=== PATIENT | female | born 1985 | race Caucasian/White ===

== ENCOUNTER 2021-07-24 16:12 | Outpatient (CLI) | payer OTHER, SELFPAY ==
[2021-07-30 13:24] LABS: HPV APTIMA, High Risk Negative (Negative)
== END 2021-07-24 23:59 | disposition home or self-care (01) ==
LOC: LABSPEC 16:23
PROVIDERS: Referring Provider Nurse Practitioner Women's Health; Visit Provider Nurse Practitioner Women's Health
DX: Z12.4 Encounter for screening for malignant neoplasm of cervix (principal)
CPT/HCPCS: 87624; 88175; G0145

== ENCOUNTER 2022-09-10 15:40 | Outpatient (CLI) | payer OTHER, SELFPAY ==
[2022-09-10 17:50] LABS: Absolute Lymphocyte Count 1.54 X10^3/uL (0.83-4.51); Absolute Neutrophil Count 3.2 X10^3/uL (2.0-7.7); Basophil# 0.04 X10^3/uL; Basophil% 0.7 % (0-1); Eosinophil# 0.29 X10^3/uL; Eosinophils% 5.2 % (0-5); Hematocrit 40.1 % (37-47); Hemoglobin 13.2 g/dL (12.0-15.0); Lymphocyte # 1.54 X10^3/ul (0.83-4.51); Lymphocyte % 27.5 % (19-41); Mean Corp Hgb Conc 32.9 g/dL (32-36); Mean Corpuscular Hgb 30.1 pg (27.0-32.0); Mean Corpuscular Volume 91.6 fL (81-99); Mean Platelet Vol. 9.4 fl (6.2-12.0); Monocyte# 0.48 X10^3/uL; Monocyte% 8.6 % (0-10); NRBC Flagged by Analyzer 0 % (0-5); Neutrophil # 3.22 X10^3/uL (2.7-7.7); Neutrophil % 57.6 % (47-70); Platelet Count 227 K/mm3 (150-450); RBC Distribution Width CV 11.9 % (11.6-14.6); RBC Distribution Width SD 40.4 fl (35.1-43.9); Red Blood Count 4.38 M/mm3 (4.2-5.4); White Blood Count 5.6 K/mm3 (4.4-11.0)
[2022-09-10 19:07] LABS: T4 Free Direct 0.97 ng/dL (0.76-1.46); Thyroid Stim Hormone (TSH) 1.69 uIU/mL (0.358-3.74)
[2022-09-13 16:09] LABS: Thyroid Stim Immunoglob <0.10 IU/L (0.00-0.55)
[2022-09-13 16:55] LABS: Anti-Thyroglobulin AB < 1.0 IU/mL (0.0-0.9); Thyroglobulin, Serum Qt. 22.6 ng/mL (1.5-38.5); Thyroid Peroxidase AB 10 IU/mL (0-34)
== END 2022-09-10 23:59 | disposition home or self-care (01) ==
LOC: MFPLAB 15:41
PROVIDERS: PCP Family Medicine; Referring Provider Family Medicine; Visit Provider Family Medicine
DX: Z00.00 Encounter for general adult medical examination without abnormal findings (principal)
CPT/HCPCS: 36415; 84432; 84439; 84443; 84445; 85025; 86376; 86800

== ENCOUNTER → 2022-09-16 | Outpatient (CLI) | payer OTHER, SELFPAY ==
--- NOTE | 2022-09-16 16:48 | US_ITS ---
STUDY: THYROID ULTRASOUND REASON FOR EXAM: Female, 37 years old. THYROMEGALY TECHNIQUE: Ultrasound evaluation of the thyroid was performed with real-time and static pagan-scale imaging. COMPARISON: None. FINDINGS: RIGHT LOBE: The right lobe of the thyroid gland measures 5.3 x 1.6 x 1.1 cm. There is a homogeneous echotexture. There is a 4 x 2 x 2 mm cystic nodule in the lower lobes demonstrating regular margins and perinodular vascularity. LEFT LOBE: The left lobe of the thyroid gland measures 5 x 1.3 x 0.9 cm. There is a homogeneous echotexture. There are multiple tiny nodules the largest cystic measuring 2 x 3 x 1 mm in the lower pole demonstrating regular margins and perinodular vascularity ISTHMUS: The isthmus measures 2.1 cm . The regional lymph nodes are normal. US/Thyroid IMPRESSION: Multiple tiny thyroid nodules most likely adenomatous.. Recommend clinical correlation and six-month follow-up Electronically Signed: Franko Faye MD at 22:15 EDT ,
== END | disposition home or self-care (01) ==
PROVIDERS: PCP Family Medicine; Referring Provider Family Medicine; Visit Provider Family Medicine
DX: E01.0 Iodine-deficiency related diffuse (endemic) goiter (principal)
CPT/HCPCS: 76536

== ENCOUNTER → 2024-09-29 | Outpatient (CLI) | payer OTHER, SELFPAY ==
[2024-09-29 12:57] LABS: Hematocrit 38.2 % (37-47); Hemoglobin 12.5 g/dL (12.0-15.0); Mean Corp Hgb Conc 32.7 g/dL (32-36); Mean Corpuscular Hgb 29.9 pg (27.0-32.0); Mean Corpuscular Volume 91.4 fL (81-99); Mean Platelet Vol. 9.6 fl (6.2-12.0); Platelet Count 214 K/mm3 (150-450); RBC Distribution Width CV 12.5 % (11.6-14.6); RBC Distribution Width SD 41.9 fl (35.1-43.9); Red Blood Count 4.18 M/mm3 (4.2-5.4); White Blood Count 4.8 K/mm3 (4.4-11.0)
[2024-09-29 13:50] LABS: Anion Gap 10 (5-15); BUN 11 mg/dL (4-19); BUN/Creat Ratio 13.3 RATIO (10-20); Calcium,Total 8.9 mg/dL (7.6-11.0); Chloride 106 mmol/L (98-108); Cholesterol 170 mg/dL (<=200); Creatinine, Serum 0.79 mg/dL (0.70-1.20); EST Glomerular Filtration Rate 97 (>60); Glucose 88 mg/dL (70-99); High Density Lipoprotein 67 mg/dL; Low Density Lipoprotein Calc. 93 mg/dL; Potassium 4.4 mmol/L (3.3-5.1); Sodium Level 139 mmol/L (133-145); Triglycerides 52 mg/dL; Very Low Density Lipoprotein 10 mg/dL (5-40); cholesterol:hdl ratio screen 2.54
== END | disposition home or self-care (01) ==
LOC: MFPLAB 09:59
PROVIDERS: PCP Family Medicine
DX: Z00.00 Encounter for general adult medical examination without abnormal findings (principal); Z13.220 Encounter for screening for lipoid disorders; E01.0 Iodine-deficiency related diffuse (endemic) goiter
CPT/HCPCS: 36415; 80048; 80061; 84439; 84443; 85027

== ENCOUNTER → 2024-10-14 | Outpatient (CLI) | payer OTHER, SELFPAY ==
--- NOTE | 2024-10-14 14:59 | US_ITS ---
PROCEDURE: THYROID 10/14/2024 REASON FOR EXAM: NODULES TECHNIQUE: High-frequency thyroid ultrasound, including grayscale and color-flow images. REFERENCE LINKS: TI-RADS Chart: [email or web address] TI-RADS Calculator Tool with Reference Images: [email or web address] COMPARISON: September 16, 2022. FINDINGS: Right thyroid lobe size: 5.4 cm x 1.7 cm x 1.3 cm Left thyroid lobe size: 5 cm x 1.3 cm 1.1 cm Isthmus: 0.14 cm Background parenchymal echotexture is homogeneous. Nodules: . Lobe: Right, Location: Inferior pole, Size: 3 mm x 3 mm x 2 mm Stability: Stable Composition: Mixed cystic and solid (+1) Echogenicity: Anechoic (+0) Margin: Smooth (+0) Shape: Wider than tall (+0) Echogenic Foci: None (+0) TI-RADS: <2 = TR 1 * 2 = TR 2 * 3 = TR 3 * 4-6 = TR 4 * >6 = TR 5 . Lobe: Left, Location: Inferior pole, Size: 3 mm x 2 mm x 1 mm , Stability: Stable Composition: Cystic or mostly cystic (+0) Echogenicity: Anechoic (+0) Margin: Smooth (+0) Shape: Wider than tall (+0) Echogenic Foci: None (+0) TI-RADS: <2 = TR 1 * 2 = TR 2 * 3 = TR 3 * 4-6 = TR 4 * >6 = TR 5 Incidental note is made of a 2.2 cm x 1 cm by 0.4 cm benign-appearing right cervical lymph node. US/Thyroid IMPRESSION: Stable examination. RECOMMENDATION: Based on most suspicious nodule. Nodule size = largest diameter Only evaluate nodule if =>5 mm. Growth > 20% in 2 dimensions = worsening. Follow up to 4 nodules. Recommend biopsy for no more than 2 nodules. Reading Location: [place] [id number]
== END | disposition home or self-care (01) ==
LOC: OPUS 14:58
PROVIDERS: PCP Family Medicine
DX: Z00.00 Encounter for general adult medical examination without abnormal findings (principal); E04.2 Nontoxic multinodular goiter
CPT/HCPCS: 76536

== ENCOUNTER → 2025-04-13 | Outpatient (CLI) | payer OTHER, SELFPAY ==
--- OUTSIDE RECORDS SUMMARY | 2025-04-13 09:17 | XMS RPT_ITS | CCD ---
Author Organization [facility] Care Team Providers Care Chief Projectionist Name Role Phone Unavailable Primary Care Provider Unavailabl e Care Physician, No Primary Referring Provider Un available Dr. Shanique Torrez Attending Provider Dr. Jules Espinoza Primary Care Provider Jules Espinoza Referring Unavailable Mariza Braswell Attending Unavailable Jules Espinoza Primary Care Unavailable [facility] HYDROELECTRIC SYSTEMS TECHNICIAN, Ben Attending [facility]available [facility] HYDROELECTRIC SYSTEMS TECHNICIAN, Ben Referring Unavailable Jules Espinoza Primary Care Unavailable [facility] HYDROELECTRIC SYSTEMS TECHNICIAN, Ben Attending Unavailable [facility] HYDROELECTRIC SYSTEMS TECHNICIAN, Ben Referring Unavailable Jules Espinoza Primary Care Unavailable Jules Espinoza Referring Unavailable Damari Brito Attending Unavailable Jules Espinoza Primary Care Unavailable Unavailable Primary Care Provider UnavailARPIT Lozoya Attending Unavailable OCTAVIAORROWBEN Referring Unavailable LOKI RENAE Attending Unavaila ble Allergies Allergy Classification Reported Allergen(s) Allergy Type Date of Onset Reaction(s) Facility (2 sources) environmental [Other] Propensity to adverse reactions 7 [facility] (1 source) OTHER; Translations: [OTHER] Propensity to adverse reactions (disorder) 7 [facility] Repository Medications Current Medications Medication Drug Class(es) Dates Sig (Normalized) Sig (Original) budesonide 0.032 mg/actuat metered dose nasal spray (2 sources) Corticosteroid Start: 07-24-2021 take 1 spray(s) nasal route once daily Budesonide Active 1 SPRAY INTRANASAL DAILY July 24, 2021 1:00am administer into each nostril cetirizine hydrochloride 10 mg oral capsule (2 sources) Histamine-1 Receptor Antagonist Start: 07-24-2021 take 1 capsule by mouth once daily Cetirizine (Zyrtec) 10 mg capsule Active 10 MG PO DAILY July 24, 2021 1:00am 12 hr cetirizine hydrochloride 5 mg / pseudoephedrine hydrochloride 120 mg extended release oral tablet (2 sources) alpha-Adrenergic Agonist, Histamine-1 Receptor Antagonist Start: 06-04-2006 ZYRTEC-D 5 MG-120 MG 12 HR TAB Take one(1) tablet daily as needed. 45 0 06/04/2006 Active levonorgestrel 0.580414 mg/hr intrauterine system (2 sources) Progestin, Progestin-containin g Intrauterine Device Start: 07-24-2021 Levonorgestrel (Liletta) 20.1 mcg/24 hrs (6 yrs) 52 mg intrauterine device Active 1 DEVICE INTRA-UTER ONCE July 24, 2021 1:00am inserted 02/2020 mometasone furoate 0.05 mg/actuat metered dose nasal spray (2 sources) Corticosteroid Start: 01-04-2009 mometasone furoate(NASONEX 50 MCG/ACTUATION SPRAY) as needed 1 2 01/04/2009 Active Completed/Discontinued Medications Medication Drug Class(es) Dates Sig (Normalized) Sig (Original) benzoyl peroxide 0.05 mg/mg / clindamycin phosphate 0.012 mg/mg topical gel (2 sources) Lincosamide Antibacterial Start: 06-03-2006 End: 02-03-2025 apply 30 g topically in the morning DUAC 1 %-5 % TOPICAL GEL APPLY TO AFFECTED AREA IN THE MORNING 30 GM 1 06/03/2006 02/03/2025 Discontinued (Course of therapy completed) drospirenone / Ethinyl Estradiol (2 sources) Progestin, Estrogen Start: 07-30-2007 End: 02-03-2025 ethinyl estradiol/drospire none(ANDERSON 28 3 MG-0.03 MG TAB) Take one(1) tablet daily. 1 pkt 0 07/30/2007 02/03/2025 Discontinued (Course of therapy completed) Start: 07-30-2007 ethinyl estrad iol/drospirenone(ANDERSON 28 3 MG-0.03 MG TAB) Take one(1) tablet daily. 1 pkt 0 07/30/2007 Active montelukast 10 mg oral tablet (2 sources) Leukotriene Receptor Antagonist Start: 08-01-2006 End: 02-03-2025 SINGULAIR 10 MG TAB Take one(1) tablet daily at bedtime. 15 1 08/01/2006 02/03/2025 Discontinued (Course of therapy completed) tretinoin 0.001 mg/mg topical gel (2 sources) Retinoid Start: 06-03-2006 End: 02-03-2025 RETIN-A MICRO 0.1 % TOPICAL GEL AT NIGHT FOR ACNE 45GRAMS 0 06/03/2006 02/03/2025 Discontinued (Course of therapy completed) Problems Active Problems Problem Classification Problem Date Documented Da te Episodic/Chronic Contraceptive and procreative management (2 sources) Intrauterine contraceptive device in situ; Translations: [Presence of (intrauterine) contraceptive device] 07-24-2021 Episodic Other gastrointestinal disorders (1 source) Diarrhea, unspecified; Translations: [Diarrhea, unspecified] Onset: 10-05-2024 Episodic Thyroid disorders (2 sources) Multinodular goiter; Translations: [Nontoxic multinodular goiter] 01-03-2025 Chronic Past or Other Problems Problem Classification Problem Date Documented Da te Episodic/Chronic Other fractures (2 sources) Closed fracture of rib; Translations: [Fracture of one rib, unspecified side, initial encounter for closed fracture] Onset: 04-22-2007 09-28-2024 Episodic Other skin disorders (2 sources) Acne; Translations: [Other acne] Onset: 05-14-2005 09-28-2024 Episodic Results Test Name Value Interpretation Reference Range Facility [facility] 02-03-2025 CNOV Office Visit (ENWSTR ) BONY QUIROZ ([id number]) 1985 F Date Time Provider Department 02/03/25 8:00 AM LOKI RENAE ENWSTR During your visit today, we recorded the following information about you: Pulse Respiration Blood pressure Weight 80/minute 17/minute 104/76 77.2 kg Loki Renae MD 02/03/2025 6:59 PM Signed [facility] Initial Clinic Visit Note NAME: Bony Quiroz PCP: No primary care provider on file. Chief Complaint: Thyroid cysts HPI: Bony Quiroz is a 39 year old female was referred for evaluation of thyroid nodules/cysts. She works at a vet clinic History in brief, - Initial thyroid ultrasound performed in [place] several years ago. - Moved to [place] and established care with a new PCP, who ordered a repeat ultrasound. - Bony missed a follow-up appointment, resulting in a 2-year gap before the next ultrasound. - Recent ultrasound showed small nodules and an enlarged lymph node. - Consulted with Dr. Agustin, a general surgeon, who reviewed the images and noted the nodules were small and the lymph node appeared healthy. But was advised to seek Endocrinology opinion - Bony denies family history of thyroid nodules or cancer. - Bony's mother has rheumatoid arthritis; Bony's sister had reactive arthritis. - Bony denies history of smoking. 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 - Bony denies other exposure to radioactive material. She is here for my opinion on biopsy of the nodule PAST MEDICAL HISTORY Diagnosis Date NONE PAST SURGICAL HISTORY Procedure Laterality Date PAST SURGICAL HISTORY OF widom teeth extracted ALLERGIES Allergen Reactions Environmental [Othe* stated that she has nasal issues with this, eg: sneezing, runny nose. SOCIAL HISTORY[1] FAMILY HISTORY Problem Relation Age of Onset Cancer Paternal Grandmother MEDICATIONS: Current Outpatient Medications on File Prior to Visit Medication Sig mometasone furoate(NASONEX 50 MCG/ACTUATION SPRAY) as needed ZYRTEC-D 5 MG-120 MG 12 HR TAB Take one(1) tablet daily as needed. No current facility-administered medications on file prior to visit. REVIEW OF SYSTEMS: 10 point ROS was reviewed and negative unless indicated in the HPI PHYSICAL EXAMINATION: BP: 104/76 Pulse: 80 Resp: 17 SpO2: 99 % General: no acute distress, alert and orientated X 3 Eyes:EOMI, anicteric sclera Neck - supple, no significant adenopathy, Thyroid: normal in size, no asymmetry, no palpable nodules Neuro: alert, oriented, normal speech, no focal findings noted CV: normal rate and regular rhythm, S1 and S2 normal. Chest: Lungs clear to auscultation. No wheezing, rhonchi, rales Abdominal: soft, non-tender. Bowel sounds normal. Musculoskeletal: no joint tenderness, deformity or swelling Extremities: no edema, no discoloration Skin: no rash or erythema LABS AND IMAGING No labs available to us, but patient reports normal thyroid labs recently done at PCP office Thyroid ultrasound (10/14/24): ASSESSMENT AND PLAN: Bony Quiroz is a 39 year old female presenting to endocrinology for evaluation of thyroid nodules. 1. Multiple Thyroid cysts/nodules: - TSH normal as verbally reported, along with free T4, and Free T3 - I reviewed the findings with the patient, explained these are considered thyroid cysts, which are essentially benign, and given the size do not need any follow up - she can have thyroid tests done annually or when symptoms occur as part of physical exam, due to family hx of autoimmune disorders, and if any abnormality, can be reviewed Symptoms of hypo and hyperthyroidism reviewed with her No follow up indicated Loki Renae MD [facility] Endocrinology and Metabolism [place] [facility] I spent a total of 30 minutes on the date of the service which included preparing to see the patient, [id number] patient care, completing clinical documentation, obtaining and/or reviewing separately obtained history, performing a medically appropriate examination, counseling and educating the patient/family/caregiv er, ordering medications, tests, or procedures, independently interpreting results (not separately reported), and communicating results to the patient/family/caregiv er. Medical Decision Making: Medical Decision Making Level: 1 - N/A [1] Social History Tobacco Use Smoking status: Never Smokeless tobacco: Never Vaping Use Vaping status: Never Used Substance Use Topics Alcohol use: Yes Comment: occasional Drug use: No Allergies As of Date: 02/03/2025 Noted Allergy Reaction environmental [Other] 08/01/2006 Comments: stated that she has nasal issues with this, eg: sneezing, runny nose. Date Reviewed: 02/03/2025 (more content not included)... Normal [facility] CNOVon 12-20-2024 CNOV Office Visit (GENSWS ) BONY QUIROZ ([id number]) 1985 F Date Time Provider Department 12/20/24 3:30 PM ARPIT AGUSTIN During your visit today, we recorded the following information about you: Temperature Pulse Blood pressure Weight 98.2 degrees 91/minute 130/82 78 kg Arpit Agustin MD 01/03/2025 3:39 PM Signed HISTORY AND PHYSICAL Bony Quiroz 1985 REFERRING PHYSICIAN: Ben Simmons AP* CHIEF COMPLAINT: Consult (Thyroid nodule) HPI: Bony Quiroz is a 39-year-old female presenting for evaluation of thyroid nodules and lymphadenopathy. Bony reports a history of thyroid nodules first identified several years ago during an ultrasound in [place], prompted by her sister, a nurse, who noticed her thyroid appeared enlarged. Her primary care provider at the time noted the thyroid was pretty okay on palpation but ordered an ultrasound to confirm. The ultrasound revealed some findings, but nothing concerning, and she was advised to inform her primary care provider and get routine blood work. After moving to [place], Bony had blood work and a repeat thyroid ultrasound performed 2-3 years ago by a primary care provider at [facility]. The ultrasound again revealed some findings, and she was advised to recheck it in 6 months to a year. However, she missed her physical the following year and did not have another ultrasound until this year. During her physical, she informed the nurse practitioner about her history, and the nurse practitioner noted in the chart that a repeat ultrasound was recommended. Bony had blood work and a repeat ultrasound performed. Bony did not receive the results of the ultrasound and received a bill from the radiologist. She contacted [facility] and was informed via voicemail that four nodules were found on her thyroid, but her blood work was normal, and she was advised to continue monitoring. She then received a call from [facility] informing her of a referral, which she initially thought was to endocrinology but was actually to general surgery. Bony denies feeling any nodules in her neck but notes that her neck appears larger, which she attributes to weight gain after having three children. She denies feeling lethargic or sick and has not experienced night sweats. She is unaware of any family history of lymphoma. The patient is being seen by me today at the request of Dr. Simmons for my opinion and advice regarding Multinodular goiter (primary encounter diagnosis). PAST MEDICAL HISTORY Diagnosis Date NONE PAST SURGICAL HISTORY Procedure Laterality Date PAST SURGICAL HISTORY OF widom teeth extracted Current Outpatient Medications Medication Sig mometasone furoate(NASONEX 50 MCG/ACTUATION SPRAY) as needed ethinyl estradiol/drospirenone (ANDERSON 28 3 MG-0.03 MG TAB) Take one(1) tablet daily. SINGULAIR 10 MG TAB Take one(1) tablet daily at bedtime. DUAC 1 %-5 % TOPICAL GEL APPLY TO AFFECTED AREA IN THE MORNING RETIN-A MICRO 0.1 % TOPICAL GEL AT NIGHT FOR ACNE ZYRTEC-D 5 MG-120 MG 12 HR TAB Take one(1) tablet daily as needed. No current facility-administered medications for this visit. ALLERGIES: Environmental [Other] PERSONAL HISTORY: Social History Tobacco Use Smoking status: Never Substance Use Topics Alcohol use: Yes Comment: occasional Drug use: No FAMILY HISTORY: FAMILY HISTORY Problem Relation Age of Onset Cancer Paternal Grandmother REVIEW OF SYMPTOMS: The review of systems data was entered by the nurse and reviewed by me There are no exam notes on file for this visit. PHYSICAL EXAMINATION: General: The patient is 39 year old female, well nourished, well hydrated in no acute distress. The patient is oriented to time, place, and person. VITALS: Blood pressure 130/82, pulse 91, temperature 36.8 ?C (98.2 ?F), weight 78 kg (172 lb), last menstrual period 08/05/2006, SpO2 99%. HEENT: Normal cephalic, ataumatic, pupils are equally round, sclera are anicteric, mucous membranes are moist, oropharynx is clear. Neck has no masses, asymmetry or lymphadenopathy. Thyroid is unremarkable. Respiratory: Clear to auscultation and percussion. Normal respiratory excursion and pattern. Cardiac: Examination is regular rate and rhythm. Abdominal exam: Soft, nontender, with no palpable masses. No hepatosplenomegaly. No palpable hernias. Rectal exam: exam deferred Extremities: no clubbing, cyanosis or edema. No adenopathy. Other: LABORATORY VALUES: Labs Tests Imaging - Thyroid Ultrasound (most recent noted, no date specified): - Four nodules measuring up to 3 mm. - Lateral cervical lymph node measuring 2.2 ? 1 ? 0.4 cm with elongated shape, consistent with normal architecture (TR1). - Thyroid Ultrasound (earlier, no date specified): - Multiple nodules identified; recommended follow-up in 6 (more content not included)... Normal [facility] Thyroidon 10-14-2024 Thyroid [facility] Imaging Services [address] [place], [place] [address] Thyroid MR#: [id number] Acct: [id number] Name: BONY QUIROZ Rep #: [id number] : 1985 F 39 From: Omid ramírez MD PCP: Dr. Jules Espinoza MD Status: REG CLI Study: Thyroid Date of Exam: 10/14/24 Exam# [id number] Ordering Dr: Ben Simmons HYDROELECTRIC SYSTEMS TECHNICIAN HYDROELECTRIC SYSTEMS TECHNICIAN -C PROCEDURE: THYROID 10/14/2024 REASON FOR EXAM: NODULES TECHNIQUE: High-frequency thyroid ultrasound, including grayscale and color-flow images. REFERENCE LINKS: TI-RADS Chart: [email or web address] TI-RADS Calculator Tool with Reference Images: [email or web address] radiology-calculators/ body-imaging/tirads-ca lculator/ COMPARISON: September 16, 2022. FINDINGS: Right thyroid lobe size: 5.4 cm x 1.7 cm x 1.3 cm Left thyroid lobe size: 5 cm x 1.3 cm 1.1 cm Isthmus: 0.14 cm Background parenchymal echotexture is homogeneous. Nodules: . Lobe: Right, Location: Inferior pole, Size: 3 mm x 3 mm x 2 mm Stability: Stable Composition: Mixed cystic and solid (+1) Echogenicity: Anechoic (+0) Margin: Smooth (+0) Shape: Wider than tall (+0) Echogenic Foci: None (+0) TI-RADS: <2 = TR 1 * 2 = TR 2 * 3 = TR 3 * 4-6 = TR 4 * >6 = TR 5 . Lobe: Left, Location: Inferior pole, Size: 3 mm x 2 mm x 1 mm , Stability: Stable Composition: Cystic or mostly cystic (+0) Echogenicity: Anechoic (+0) Margin: Smooth (+0) Shape: Wider than tall (+0) Echogenic Foci: None (+0) TI-RADS: <2 = TR 1 * 2 = TR 2 * 3 = TR 3 * 4-6 = TR 4 * >6 = TR 5 Incidental note is made of a 2.2 cm x 1 cm by 0.4 cm benign-appearing right cervical lymph node. US/Thyroid IMPRESSION: Stable examination. RECOMMENDATION: Based on most suspicious nodule. Nodule size = largest diameter Only evaluate nodule if =>5 mm. Growth > 20% in 2 dimensions = worsening. Follow up to 4 nodules. Recommend biopsy for no more than 2 nodules. Reading Location: [facility] CC: Ben DUCKWORTH McMorrdiane; Dr. Jules Espinoza MD Household Appliance Installer: Signed Normal [facility] Gastroenterology Visit Repor ton 10-05-2024 Gastroenterology Visit Report [facility] Gastroenterology [address] [place] [address] OFFICE VISIT Date of Service: 10/05/24 MR#: [id number] Acct: [id number] Name: BONY QUIROZ Rep #: [id number] : 1985 Provider: DONITA lofton Age/Sex: 39/F Location: [facility] Status: Signed Intake Vital Signs 09/24/24 09:35 Height 5 ft 8 in Intake Visit Reasons: Diarrhea Chief Complaint: Allergies No Known Allergies Allergy (Verified 10/05/24 14:32) Medications ???Medication ???Instructions ???Recorded ???Confirmed ???Type cetirizine 10 mg capsule (Zyrtec) 10 mg PO DAILY PRN 07/24/2110/05 History fluticasone propionate 50 1 spray intranasal DAILY 09/17/23 10/01/24 History mcg/actuation nasal spray,suspension (Flonase Allergy Relief) [facility] Medical History Shingles Thyromegaly Diarrhea hypertension Seasonal allergies Surgical History H/O oral surgery Family History Father Dementia Prostate cancer Mother Rheumatoid arthritis Sister Celiac disease Other Heart disease Social History household members: spouse and children number of children: 3 current occupational status: employed current occupation: [employer] Smoking Status: Never smoker alcohol intake: current alcohol intake frequency: a few times a month substance use type: does not use what type of physical activity do you participate in: none seatbelt use: always do you feel safe at home: Yes additional social history: - Miguel HPI HPI Chief Complaint: Details: BONY QUIROZ, is a 39 F who presents to the office today for establishment with [facility] for what seems to be cyclical diarrhea. She denies having any GI symptoms at this time. She states that on the last day of her menstrual period, she will get an abdominal discomfort and bloat so bad that she will need a heating pad and Aleve and just be done for the day. She reports having several episodes of watery diarrhea with urgency but is unable to pinpoint if they were from something the kids brought home or something she ate. Upon further discussion, each episode of waking with watery diarrhea came the night before she had to travel a long distance, stress related? She reports that her mother has food sensitivities and rheumatoid arthritis and her sisters have celiac disease and history of multiple pre-cancerous polypectomies. She has discovered that dark pop causes bloating and diarrhea and has removed that from her diet. ROS Const Constitutional: No fatigue, fever(s) or weight change Eyes Eyes: No blurry vision or change in vision ENT ENT: No abnormal hearing or difficulty swallowing Resp Respiratory: No cough Cardio Cardiology: No chest pain at rest, chest pain with exertion or leg pain with exertion Gastro GI: Positive for bloating and excessive flatus; No abdominal pain, belching, change in bowel habits, change in stool character, coffee ground emesis, constipation, cramping, diarrhea, heartburn, difficulty swallowing, feeling full early, incontinent of stools, Vomiting blood/hematemesis, Blood in stool, loose stools, Black,tarry stools, nausea/dyspepsia, pain with swallowing, vomiting or other Genitourinary-Female: No difficulty urinating Musc Musculoskeletal: Positive for back pain; No joint pain or leg pain with exertion Skin Skin: No yellowing of the eye or itchy eyes Neuro Neurology: No abnormal hearing Psych Psychiatric: No anxiety and No depression Endo Endocrine: No cold intolerance, fatigue, heat intolerance or weight change Aller/Imm Allergy/Immunologic: No food intolerance or itchy eyes Que/Lymp Hematologic/Lymphatic: No easy bleeding or easy bruising Exam Const General: cooperative, healthy appearing, comfortable, no acute distress and well groomed Nutritional Appearance: average body habitus Orientation: alert and oriented x3 HENMT Head: normal to inspection Ears: hearing grossly normal bilaterally Nose: external nose normal Face and sinus: normal facial exam and face symmetric Mouth: oral mucosae normal Teeth and gingiva: dentition normal Eyes General: appearance normal, both eyes and all related structures Sclera: sclerae normal Neck Neck: normal visual inspection and full ROM Chest Chest palpation inspection: normal inspection of the chest Resp Effort Inspection: normal respiratory effort, able to speak in complete sentences and symmetric chest movement GI Inspection: normal to inspection Skin General: no rashes or lesions noted Neuro General: patient alert, patient oriented x3 and moves all extremitie (more content not included)... Normal [facility] Basic Metabolic Profile (BMP )on 09-29-2024 BUN/CRE 13.3 RATIO Normal 10-20 [facility] Comment on above: Order Comment: Order Date: 09/27/24 Order Info: [id number] - BMP Order Info: [id number] - LIPID Comments: cholesterol screening Order Info: [id number] - TSH Order Info: 3024-7 - T4F cholesterol screening Performed By: #### L 500.2500 #### [facility] [place], [address] Calcium [Mass/Vol] 8.9 mg/dL Normal 7.6-11.0 [facility] Comment on above: Order Comment: Order Date: 09/27/24 Order Info: 06 - BMP Order Info: [id number] - LIPID Comments: cholesterol screening Order Info: [id number] - TSH Order Info: 3023-12 T4F cholesterol screening Performed By: #### L 500.2500 #### [facility] [address] [place], [place], [id number] Chloride [Moles/Vol] 106 mmol/L Normal 98-108 [facility] Comment on above: Order Comment: Order Date: 09/27/24 Order Info: [id number] - BMP Order Info: [id number] - LIPID Comments: cholesterol screening Order Info: [id number] - TSH Order Info: 3023-12 T4F cholesterol screening Performed By: #### L 500.2500 #### [facility] [address] [place], [place], [id number] CO2 [Moles/Vol] 22.0 mmol/L Normal 21.0-32.0 [facility] Comment on above: Order Comment: Order Date: 09/27/24 Order Info: [id number] - BMP Order Info: [id number] - LIPID Comments: cholesterol screening Order Info: [id number] - TSH Order Info: 3023-12 T4F cholesterol screening Performed By: #### L 500.2500 #### [facility] [address] [place], [place], [id number] Creatinine [Mass/Vol] 0.79 mg/dL Normal 0.70-1.20 [facility] Comment on above: Order Comment: Order Date: 09/27/24 Order Info: [id number] - BMP Order Info: [id number] - LIPID Comments: cholesterol screening Order Info: [id number] - TSH Order Info: 3023-12 T4F cholesterol screening Performed By: #### L 500.2500 #### [facility] [address] [place], [address] GAP 10 Normal 5-15 [facility] Comment on above: Order Comment: Order Date: 09/27/24 Order Info: [id number] - BMP Order Info: [id number] - LIPID Comments: cholesterol screening Order Info: [id number] - TSH Order Info: 3023-12 T4F cholesterol screening Performed By: #### L 500.2500 #### [facility] [address] [place], [address] GFR/1.73 sq M.predicted among non-blacks MDRD (S/P/Bld) [Vol rate/Area] 97 mL/min/{1.73_m2} Normal >60 [facility] Comment on above: Order Comment: Order Date: 09/27/24 Order Info: [id number] - BMP Order Info: [id number] - LIPID Comments: cholesterol screening Order Info: 3015-08 - TSH Order Info: 3023-12 T4F cholesterol screening Result Comment: mL/m in/1.73m2 CKD-EPI Creatinine Equation (2020) Performed By: #### L 500.2500 #### [facility] [address] [place], [address] Glucose [Mass/Vol] 88 mg/dL Normal 70-99 [facility] Comment on above: Order Comment: Order Date: 09/27/24 Order Info: 666-06 - BMP Order Info: [id number] - LIPID Comments: cholesterol screening Order Info: 3015-08 - TSH Order Info: 3023-12 T4F cholesterol screening Performed By: #### L 500.2500 #### [facility] [address] [place], [address] Potassium [Moles/Vol] 4.4 mmol/L Normal 3.3-5.1 [facility] Comment on above: Order Comment: Order Date: 09/27/24 Order Info: 666-06 - BMP Order Info: [id number] - LIPID Comments: cholesterol screening Order Info: 3015-08 - TSH Order Info: 3023-12 T4F cholesterol screening Performed By: #### L 500.2500 #### [facility] [address] [place], [address] Sodium [Moles/Vol] 139 mmol/L Normal 133-145 [facility] Comment on above: Order Comment: Order Date: 09/27/24 Order Info: 0667-1 - BMP Order Info: [id number] - LIPID Comments: cholesterol screening Order Info: 3 - TSH Order Info: 3023-12 T4F cholesterol screening Performed By: #### L 500.2500 #### [facility] [address] [place], [address] Urea nitrogen [Mass/Vol] 11 mg/dL Normal 4-19 [facility] Comment on above: Order Comment: Order Date: 09/27/24 Order Info: 0667 - BMP Order Info: [id number] - LIPID Comments: cholesterol screening Order Info: 3015-08 - TSH Order Info: 3023-12 T4F cholesterol screening Performed By: #### L 500.2500 #### [facility] [address] [place], [address] CBC-Complete Blood Cnt No Di ffon 09-29-2024 Erythrocyte distribution width (RBC) [Ratio] 12.5 % Normal 11.6-14.6 [facility] Comment on above: Order Comment: Order Date: 09/27/24 Order Info: [id number] - CBC Performed By: #### L 100.0500 #### [facility] [address] [place], [address] Hematocrit (Bld) [Volume fraction] 38.2 % Normal 37-47 [facility] Comment on above: Order Comment: Order Date: 09/27/24 Order Info: [id number] - CBC Performed By: #### L 100.0500 #### [facility] [address] [place], [address] Hemoglobin (Bld) [Mass/Vol] 12.5 g/dL Normal 12.0-15.0 [facility] Comment on above: Order Comment: Order Date: 09/27/24 Order Info: [id number] - CBC Performed By: #### L 100.0500 #### [facility] [address] [place], [address] MCH (RBC) [Entitic mass] 29.9 pg Normal 27.0-32.0 [facility] Comment on above: Order Comment: Order Date: 09/27/24 Order Info: [id number] - CBC Performed By: #### L 100.0500 #### [facility] [address] [place], [address] MCHC (RBC) [Mass/Vol] 32.7 g/dL Normal 32-36 [facility] Comment on above: Order Comment: Order Date: 09/27/24 Order Info: [id number] - CBC Performed By: #### L 100.0500 #### [facility] [address] [place], [address] MCV (RBC) [Entitic vol] 91.4 fL Normal 81-99 [facility] Comment on above: Order Comment: Order Date: 09/27/24 Order Info: [id number] - CBC Performed By: #### L 100.0500 #### [facility] [address] [place], [address] Platelet mean volume (Bld) [Entitic vol] 9.6 fL Normal 6.2-12.0 [facility] Comment on above: Order Comment: Order Date: 09/27/24 Order Info: [id number] - CBC Performed By: #### L 100.0500 #### [facility] [address] [place], [address] Platelets (Bld) [#/Vol] 214 10*3/uL Normal 150-450 [facility] Comment on above: Order Comment: Order Date: 09/27/24 Order Info: [id number] - CBC Performed By: #### L 100.0500 #### [facility] [address] [place], [address] RBC (Bld) [#/Vol] 4.18 10*6/uL Low 4.2-5.4 [facility] Comment on above: Order Comment: Order Date: 09/27/24 Order Info: [id number] - CBC Performed By: #### L 100.0500 #### [facility] [address] [place], [address] RDW SD 41.9 fl Normal 35.1-43.9 [facility] Comment on above: Order Comment: Order Date: 09/27/24 Order Info: [id number] - CBC Performed By: #### L 100.0500 #### [facility] [address] [place], [address] WBC (Bld) [#/Vol] 4.8 10*3/uL Normal 4.4-11.0 [facility] Comment on above: Order Comment: Order Date: 09/27/24 Order Info: [id number] - CBC Performed By: #### L 100.0500 #### [facility] [address] [place], [address] Lipid Profileon 09-29-2024 CHOL:HDL 2.54 Normal [facility] Comment on above: Order Comment: Order Date: 09/27/24 Order Info: 0667-1 - BMP Order Info: [id number] - LIPID Comments: cholesterol screening Order Info: 3 - TSH Order Info: 3023-12 - T4F Performed By: #### L 500.4100 #### [facility] [address] [place], [address] Cholesterol [Mass/Vol] 170 mg/dL Normal <=200 [facility] Comment on above: Order Comment: Order Date: 09/27/24 Order Info: 0667-1 - BMP Order Info: [id number] - LIPID Comments: cholesterol screening Order Info: 3015-3 - TSH Order Info: 7 - T4F Result Comment: Chol esterol level, Desirable <200 mg/dL Borderline high cholesterol 200-239 mg/dL High cholesterol >=240 mg/dL Recommendations of the NCEP Adult Treatment Panel for the following risk-cutoff thresholds for the [place] population. Performed By: #### L 500.4100 #### [facility] [address] [place], [address] Cholesterol in HDL [Mass/Vol] 67 mg/dL Normal [facility] Comment on above: Order Comment: Order Date: 09/27/24 Order Info: 666-06 - BMP Order Info: [id number] - LIPID Comments: cholesterol screening Order Info: 3 - TSH Order Info: 3023-12 - T4F Result Comment: Zayda onal Cholesterol Education Program (NCEP) guidelines: <40 mg/dL: Low HDL-cholesterol (major risk factor for CHD) >= 60 mg/dL: High HDL-cholesterol (negative risk factor for CHD) HDL-cholesterol is affected by a number of factors, e.g. smoking, exercise, hormones, sex and age. Performed By: #### L 500.4100 #### [facility] [address] [place], [address] Cholesterol in LDL [Mass/Vol] 93 mg/dL Normal [facility] Comment on above: Order Comment: Order Date: 09/27/24 Order Info: 666-06 - BMP Order Info: [id number] - LIPID Comments: cholesterol screening Order Info: 3015-08 - TSH Order Info: 3023-12 - T4F Result Comment: Bord llmdpu=550-993 mg/dL Higher Vxgm=425 mg/dL or greater Performed By: #### L 500.4100 #### [facility] [address] [place], [address] Cholesterol in VLDL [Mass/Vol] 10 mg/dL Normal 5-40 [facility] Comment on above: Order Comment: Order Date: 09/27/24 Order Info: 666-06 - BMP Order Info: [id number] - LIPID Comments: cholesterol screening Order Info: 3015-08 - TSH Order Info: 3023-12 - T4F Performed By: #### L 500.4100 #### [facility] [address] [place], [address] Triglyceride [Mass/Vol] 52 mg/dL Normal [facility] Comment on above: Order Comment: Order Date: 09/27/24 Order Info: 666-06 - BMP Order Info: [id number] - LIPID Comments: cholesterol screening Order Info: 3015-08 - TSH Order Info: 3023-12 - T4F Result Comment: The drugs N-Acetylcysteine and Metamizole may falsely depress this assay. Normal range: <150 mg/dL Borderline High: 150-199 mg/dL High: 200-499 mg/dL Very High: >500 mg/dL Performed By: #### L 500.4100 #### [facility] [address] [place], [place], [address] T4 Free Directon 09-29-2024 T4 FREE DIRECT 1.10 ng/dL Normal 0.76-1.46 [facility] Comment on above: Order Comment: Order Date: 09/27/24 Order Info: 666-06 - BMP Order Info: [id number] - LIPID Comments: cholesterol screening Order Info: 3015-08 - TSH Order Info: 3023-12 T4F cholesterol screening Performed By: #### L 506.0400 #### [facility] [address] [place], [place], [address] Thyroid Stim Hormone (TSH)on 09-29-2024 TSH 2.300 uIU/mL Normal 0.300-4.200 [facility] Comment on above: Order Comment: Order Date: 09/27/24 Order Info: 666-06 - BMP Order Info: [id number] - LIPID Comments: cholesterol screening Order Info: 3015-08 - TSH Order Info: 3023-12 - T4F Performed By: #### L 501.9520 #### [facility] [address] [place], [place], [address] [employer] Office Visit Reporton 09-24-2024 [employer] Office Visit Report [facility] [address], [address] [place] [address] OFFICE VISIT Date of Service: 09/24/24 MR#: [id number] Acct: [id number] Name: BONY QUIROZ Rep #: [id number] : 1985 Provider: CANDE Luz ams Age/Sex: 39/F Location: [facility] Status: Signed Intake Vital Signs 09/17/23 11:42 09/24/24 09:32 09/24/24 09:35 Height 5 ft 8 in 5 ft 8 in 5 ft 8 in Weight: 165 lb 6 oz BMI 25.1 BP 118/81 H Intake Visit Reasons: Annual (PUBLIC HEALTH) Chief Complaint: Annual Medical Assisting Program Director Required: No Is patient in pain?: No Allergies No Known Allergies Allergy (Verified 09/24/24 09:31) Medications ???Medication ???Instructions ???Recorded ???Confirmed ???Type cetirizine 10 mg capsule (Zyrtec) 10 mg PO DAILY PRN 07/24/2109/24 History fluticasone propionate 50 1 spray intranasal DAILY 09/17/23 09/24/24 History mcg/actuation nasal spray,suspension (Flonase Allergy Relief) Is last menstrual period known: Yes Last Menstrual Period: 09/07/24 Post menopausal: No Patient : No : No Control Method: Vasectomy PFSH Medical History hypertension Seasonal allergies Surgical History H/O oral surgery Family History Father Dementia Prostate cancer Mother Rheumatoid arthritis Other Heart disease Social History household members: spouse and children number of children: 3 current occupational status: employed current occupation: [employer] Smoking Status: Never smoker alcohol intake: current alcohol intake frequency: a few times a month substance use type: does not use what type of physical activity do you participate in: none seatbelt use: always do you feel safe at home: Yes additional social history: - Miguel History 3 Elective abortions Hx Para 3 Spontaneous abortions Hx # Term Pregnancies Ectopic pregnancies Hx # Pregnancies Multiple births # of living children 3 Past Pregnancies Del. Date Name GA/Weeks Outcome Route Bth Weight Infant Gen Labor Lgth Anesthesia Del Locatn Provider FOB Unknown Akrely 2013 Unknown Naty 2016 Unknown Susie 2019 HPI Encounter for routine gynecological examination Details: BONY QUIROZ is a 39 year old who presents for annual exam. no contraception- had vasectomy. Last PAP: 07/30/21 History of abnormal PAP: No Last mammogram: Due at 40 History of abnormal mammogram: [] Colon cancer screening: Due at 45 Other preventative health care screenings: PCP Female Reproductive History Last Menstrual Period: 09/07/24 Cycle Length: 21-35 Bleeding Duration: 4 Questions: metorrhagia: Yes, sexually active: Yes, dyspareunia: No and PCB: No ROS Const Constitutional: Reports system reviewed and no additional complaints, except as documented Cardio Card: Reports system reviewed and no additional complaints, except as documented Resp Resp: Reports system reviewed and no additional complaints, except as documented GI GI: Reports system reviewed and no additional complaints, except as documented : Reports system reviewed and no additional complaints, except as documented; Denies difficulty voiding, dysuria or urinary frequency Skin Skin/Breast: Reports system reviewed and no additional complaints, except as documented Neuro Neuro: Reports system reviewed and no additional complaints, except as documented Psych Psych: Reports system reviewed and no additional complaints, except as documented; Denies anhedonia, anxiety or depression Exam Const General: cooperative, healthy appearing, comfortable and no acute distress Orientation: alert, awake and oriented x3 Neck Neck: normal visual inspection and full ROM Thyroid: thyroid normal Chest Breast inspection: normal inspection of the breasts and normal inspection of the axillae Breast palpation: normal palpation of the breasts and normal palpation of the axillae Resp Effort Inspection: normal respiratory effort, able to speak in complete sentences and symmetric chest movement GI Inspection: normal to inspection Palpation: soft Rectal Exam: visual inspection normal External Female Exam: normal external appearance and normal appearance of the urethra Urethra: normal appearance of the urethra Speculum Exam - Vagina: normal appearance of the vagina and normal vaginal discharge Speculum Exam - Cervix: normal appearance of the cervix and nontender Bimanual Exam- Vagina Uterus: normal bimanual exam, normal palpation, uterine size normal, No tender and non-tender Bimanual Exam (more content not included)... Normal [facility] Absolute lymphocyte countOrd ered By: Dr. Espinoza on 09-10-2022 Lymphocytes Auto (Unsp spec) [#/Vol] 1.54 10*3/uL 0.83-4.51 [facility] Basophil percentageOrdered B y: Dr. Espinoza on 09-10-2022 Basophils/100 WBC (Bld) 0.7 % 0-1 [facility] Eosinophils/100 WBC (Bld) 5.2 % 0-5 [facility] Neutrophils (Bld) [#/Vol] 3.2 10*3/uL 2.0-7.7 [facility] Neutrophils/100 WBC (Bld) 57.6 % 47-70 [facility] WBC (Bld) [#/Vol] 5.6 10*3/uL 4.4-11.0 [facility] Blood erythrocytes count (nu mber/volume)Ordered By: Dr. Espinoza on 09-10-2022 RBC (Bld) [#/Vol] 4.38 10*6/uL 4.2-5.4 [facility] Blood hemoglobin measurement (mass/volume)Ordered By: Dr. Espinoza on 09-10-2022 Hemoglobin (Bld) [Mass/Vol] 13.2 g/dL 12.0-15.0 [facility] Blood lymphocytes/100 leukoc ytesOrdered By: Dr. Espinoza on 09-10-2022 Lymphocytes/100 WBC (Bld) 27.5 % 19-41 [facility] Blood monocytes/100 leukocyt esOrdered By: Dr. Espinoza on 09-10-2022 Monocytes/100 WBC (Bld) 8.6 % 0-10 [facility] Blood platelet mean volumeOr dered By: Dr. Espinoza on 09-10-2022 Platelet mean volume (Bld) [Entitic vol] 9.4 fL 6.2-12.0 [facility] Determination of erythrocyte mean corpuscular volume (MCV)Ordered By: Dr. Espinoza on 09-10-2022 MCV (RBC) [Entitic vol] 91.6 fL 81-99 [facility] Hematocrit Auto (Bld) [Volum e fraction]Ordered By: Dr. Espinoza on 09-10-2022 Hematocrit (Bld) [Volume fraction] 40.1 % 37-47 [facility] - Chemistry and C hemistry - challengeOrdered By: Dr. Espinoza on 09-10-2022 Free T4 [Mass/Vol] 0.97 ng/dL 0.76-1.46 [facility] - Hematology and Cell countsOrdered By: Dr. Espinoza on 09-10-2022 Erythrocyte distribution width (RBC) [Entitic vol] 40.4 fL 35.1-43.9 [facility] Erythrocyte distribution width (RBC) [Ratio] 11.9 % 11.6-14.6 [facility] Immature granulocytes/100 WBC (Bld) 0.400 % 0.0-0.9 [facility] Comment on above: IG% - Immature Granu locytes (promyelocytes, myelocytes and metamyelocytes) > 1% indicates that a LEFT SHIFT is Present. MCH (RBC) [Entitic mass] 30.1 pg 27.0-32.0 [facility] Nucleated RBC/100 WBC (Bld) [Ratio] 0 % 0-5 [facility] MCHC Auto (RBC) [Mass/Vol]Or dered By: Dr. Espinoza on 09-10-2022 MCHC (RBC) [Mass/Vol] 32.9 g/dL 32-36 [facility] No Panel InformationOrdered By: Dr. Espinoza on 09-10-2022 Thyroglobulin Antibody < 1.0 IU/mL 0.0-0.9 [facility] Comment on above: Thyroglobulin Antibo dy measured by Yol[facility] [employer] Thyroglobulin Level 22.6 ng/mL 1.5-38.5 [facility] Comment on above: According to the [facility] Academy of Clinical Biochemistry,the reference interval for Thyroglobulin (TG) should berelated to euthyroid patients and not for patients whounderwent thyroidectomy. TG reference intervals for thesepatients depend on the residual mass of the thyroid tissueleft after surgery. Establishing a post-operative baselineis recommended. The assay limit of quantitation is 0.1ng/mLThyroglobulin measured by Yolande [place] [employer] Thyroid Stimulating Hormone (TSH) 1.69 uIU/mL 0.358-3.74 [facility] Platelets bldOrdered By: Dr. Espinoza on 09-10-2022 Platelets (Bld) [#/Vol] 227 10*3/uL 150-450 [facility] Serum or plasma thyroperoxid ase antibody assay (units/volume)Ordered By: Dr. Espinoza on 09-10-2022 TPO Ab Qn 10 [IU]/mL 0-34 [facility] Comment on above: Performed at: - [address] [id number] Director: Yinka Estrella MD, Phone: [phone] at: - [facility] [id number] [place], [place] [id number] Director: Richard Suresh PhD, Phone: [phone] Thyroid stimulating immunogl obulins detectionOrdered By: Dr. Espinoza on 09-10-2022 Thyroid stimulating immunoglobulins Ql (S) <0.10 IU/L 0.00-0.55 [facility] CR Chest 1 View Frontalon CR Chest 1 View Frontal Patient Name: BONY QUIROZ Diagnostic Radiology ACCESSION EXAM DATE/TIME PROCEDURE ORDERING PROVIDER [id number] 10/03/2020 11:49 EDT CR Chest 1 View Frontal ZAIDA ACEVES CPT code 55863 Reason For Exam (CR Chest 1 View Frontal) physical Report CLINICAL INFORMATION: Physical exam. A frontal view of the chest was obtained. No old examinations were available for comparison. No acute pulmonary disease is noted. The cardiovascular silhouette is within normal limits. IMPRESSION: No acute pulmonary disease. Report Dictated on Final Dictated: 10/04/2020 8:11 am Dictating Physician: DO PATEL ANTHONY Signed Date and Time: 10/04/2020 8:11 am Signed by: DO PATEL ANTHONY Transcribed Date and Time: 10/04/2020 8:11 Normal [facility] Vital Signs Date Time Vital Sign Value Performing Clinician Pee brown 02-03-2025 08:12-0400 Body weight 77.2 kg Loki Renae MD Work Phone: [facility] 02-03-2025 08:12-0400 Diastolic blood pressure 76 mm[Hg] Loki Renae MD Work Phone: [facility] 02-03-2025 08:12-0400 Heart rate 80 /min Loki Renae MD Work Phone: [facility] 02-03-2025 08:12-0400 Respiratory rate 17 /min Loki Renae MD Work Phone: [facility] 02-03-2025 08:12-0400 SaO2% (BldA) [Mass fraction] 99 % Loki Renae MD Work Phone: [facility] 02-03-2025 08:12-0400 Systolic blood pressure 104 mm[Hg] Loki Renae MD Work Phone: [facility] 12-20-2024 15:33-0400 Body temperature 98.2 [degF] Arpit Agustin MD Work Phone: [facility] 12-20-2024 15:33-0400 Body weight 78.02 kg Arpit Agustin MD Work Phone: [facility] 12-20-2024 15:33-0400 Diastolic blood pressure 82 mm[Hg] Arpit Agustin MD Work Phone: [facility] 12-20-2024 15:33-0400 Heart rate 91 /min Arpit Agustin MD Work Phone: [facility] 12-20-2024 15:33-0400 SaO2% (BldA) [Mass fraction] 99 % Arpit Agustin MD Work Phone: [facility] 12-20-2024 15:33-0400 Systolic blood pressure 130 mm[Hg] Arpit Agustin MD Work Phone: [facility] 09-12-2022 09:20-0400 Body height 172.72 cm No Primary Care Physician [facility] 09-12-2022 09:17-0400 Body mass index (BMI) [Ratio] 25.8 kg/m2 No Primary Care Physician [facility] 09-12-2022 09:17-0400 Body weight 77.16 kg No Primary Care Physician [facility] 09-12-2022 09:17-0400 Diastolic blood pressure 8 mm[Hg] No Primary Care Physician [facility] 09-12-2022 09:17-0400 Systolic blood pressure 122 mm[Hg] No Primary Care Physician [facility] Encounters Encounter Date Encounter Type Care Provider Facility Start: 02-03-2025 End: 02-03-2025 Patient encounter procedure Loki Renae MD Work Phone: Endocrinology Comment on above: Multiple thyroid nod ules [E04.2] (Primary Dx) Start: 02-03-2025 End: 02-03-2025 ambulatory LOKI RENAE Facility:[facility] Start: 12-20-2024 End: 12-20-2024 Patient encounter procedure rApit Agustin MD Work Phone: General Surgery Comment on above: Multinodular goiter (Primary Dx) Start: 12-20-2024 End: 12-20-2024 ambulatory ARPIT AGUSTIN Facility:[facility] Start: 10-21-2024 Encounter for genera l adult medical examination without abnormal findings Ben Simmons HYDROELECTRIC SYSTEMS TECHNICIAN [facility] Start: 10-14-2024 End: 10-14-2024 ambulatory Ben Simmons HYDROELECTRIC SYSTEMS TECHNICIAN Facility:[facility] Start: 10-05-2024 End: 10-05-2024 ambulatory Jules Espinoza Facility:[facility] Start: 09-29-2024 End: 09-29-2024 ambulatory Ben Simmons NP Facility:[facility] Start: 09-24-2024 Encounter for gynecological examination (general) (routine) without abnormal findings Damari Brito [facility] Start: 09-24-2024 End: 09-24-2024 ambulatory Jules Espinoza Facility:[facility] Start: 09-16-2022 End: 09-16-2022 ambulatory No Primary Care Physician [facility] Work Phone: Start: 09-16-2022 End: 09-16-2022 Patient encounter procedure No Primary Care Physician [facility], [facility] Start: 09-12-2022 End: 09-12-2022 Patient encounter procedure No Primary Care Physician [facility] Start: 09-10-2022 End: 09-10-2022 ambulatory No Primary Care Physician [facility] Work Phone: Start: 09-10-2022 End: 09-10-2022 Patient encounter procedure No Primary Care Physician [facility] Start: 10-03-2020 End: 10-03-2020 Subsequent hospital visit by physician Zaida Aceves MD Work Phone: [facility] [address] X-Ray Procedures Date Procedure Procedure Detail Performing Clinician Start: 09-16-2022 US scan of thyroid No P rimcortland Care Physician Plan of Treatment Date Care Activity Detail Author Start: 06-02-2029 Urine microalbumin profile DTaP,Tdap,Td Vaccine (8 - Td or Tdap) [facility] Start: 02-03-2025 End: 02-03-2025 Patient encounter procedure 02/03/2025 8:00 AM EDT Office Visit [facility] [address] [facility] [place] [place] [address] Loki Renae MD [address] [place] [address] New patient Endocrinology Comment on above: New patient Start: 01-31-2025 Influenza vaccination Influenza Vacc ine (#1) [facility] Start: 01-31-2021 Influenza vaccination Flu vacc ine (Season Ended) [facility] Work Phone: Start: 2012 HPV Vaccine (1 - 3-dose SCDM series) HPV Vaccine (1 - 3-dose SCDM series) [facility] Start: 08-22-2009 Screening for malignant neoplasm of cervix Cervical Cancer Screening [facility] Start: 2004 Hepatitis B Vaccine (1 of 3 - 19+ 3-dose series) Hepatitis B Vaccine (1 of 3 - 19+ 3-dose series) [facility] Start: 09-08-2003 Anxiety Screening Anxiety Screening [facility] Start: 09-08-2003 Depression Screening Depression Scre enfredi [facility] Start: 09-08-2003 Hepatitis C screening Hepatitis C Sc holly [facility] Start: 09-08-2003 HIV screening HIV Screening [facility] Start: 2001 COVID-19 Vaccine (1) COVID-19 Vaccin e (1) [facility] Work Phone: End: 10-03-2020 Chest x-ray 1 view frontal XR Chest 1 VW Imaging Routine Once for 1 Occurrences starting 10/03/2020 until 10/03/2020 [facility] Work Phone: Comment on above: Once for 1 Occurrenc es starting 10/03/2020 until 10/03/2020 Chest x-ray 1 view frontal XR Chest 1 VW Imaging Routine 10/03/2020 11:49 AM EDT [facility] Work Phone: Immunizations Immunization Date Immunization Notes Care Provider [facility] 09-20-2002 hepatitis B immune globulin Arpit Agustin MD Work Phone: [facility] 07-23-2002 hepatitis B immune globulin Arpit Agustin MD Work Phone: [facility] 06-11-2002 diphtheria and tetan us toxoids, adsorbed for pediatric use Arpit Agustin MD Work Phone: [facility] 06-11-2002 hepatitis B immune globulin Arpit Agustin MD Work Phone: [facility] 12-29-1997 measles, mumps and rubella virus vaccine Arpit Agustin MD Work Phone: [facility] 08-25-1990 diphtheria, tetanus toxoids and pertussis vaccine Arpit Agustin MD Work Phone: [facility] 08-25-1990 trivalent poliovirus vaccine, live, oral Arpit Agustin MD Work Phone: [facility] 05-18-1987 diphtheria, tetanus toxoids and pertussis vaccine Arpit Agustin MD Work Phone: [facility] 05-18-1987 trivalent poliovirus vaccine, live, oral Arpit Agustin MD Work Phone: [facility] 12-01-1986 measles, mumps and rubella virus vaccine Arpit Agustin MD Work Phone: [facility] 03-02-1986 diphtheria, tetanus toxoids and pertussis vaccine Arpit Agustin MD Work Phone: [facility] 03-02-1986 trivalent poliovirus vaccine, live, oral Arpit Agustin MD Work Phone: [facility] 01-17-1986 diphtheria, tetanus toxoids and pertussis vaccine Arpit Agustin MD Work Phone: [facility] 01-17-1986 trivalent poliovirus vaccine, live, oral Arpit Agustin MD Work Phone: [facility] 1985 diphtheria, tetanus toxoids and pertussis vaccine Arpit Agustin MD Work Phone: [facility] Work Phone: 1985 trivalent poliovirus vaccine, live, oral Arpit Agustin MD Work Phone: [facility] Payers Date Payer Category Payer Self-pay [id number] 2024 Private Health Insurance [employer] emb [id number] 2024 Private Health Insurance [id number] Private Health Insurance [facility] [place] [place] [id number] Unknown [facility] [id number] Unknown [facility] . [id number] Unknown [id number] Unknown [id number] Unknown [id number] Unknown [id number] Social History Date Type Detail Facility [facility] Work Phone: Start: 1985 Sex Assigned At Not on file [facility] Work Phone: Start: 09-12-2022 [facility] Start: 1985 Sex Assigned At Female [facility] Start: 02-03-2025 Tobacco smoking stat [facility] Never smoked tobacco [facility] Work Phone: Start: 12-20-2024 End: 02-03-2025 Alcoholic beverage intake Current drinker of alcohol (finding) [facility] Start: 12-20-2024 End: 02-03-2025 History of Social function [facility] Start: 12-20-2024 End: 02-03-2025 Tobacco use panel [facility] Start: 05-03-2012 National Score (1-10 0), lower number is lower risk 35 [facility] Start: 02-03-2025 Tobacco use and exposure Smokeless tobacco non-user [facility] Progress note 02-03-2025 Note Date & Type Note Facility 02-03-2025 Note HNO ID: [id number] Author: LOKI RENAE MD Service: ? Author Type: Physician Type: Progress Notes Filed: 02/03/2025 18:59 Note Text: [facility] Initial Clinic Visit Note NAME: Bony Quiroz PCP: No primary care provider on file. Chief Complaint: Thyroid cysts HPI: Bony Quiroz is a 39 year old female was referred for evaluation of thyroid nodules/cysts. She works at a [employer] History in brief, - Initial thyroid ultrasound performed in [place] several years ago. - Moved to [place] and established care with a new PCP, who ordered a repeat ultrasound. - Bony missed a follow-up appointment, resulting in a 2-year gap before the next ultrasound. - Recent ultrasound showed small nodules and an enlarged lymph node. - Consulted with Dr. Agustin, a general surgeon, who reviewed the images and noted the nodules were small and the lymph node appeared healthy. But was advised to seek Endocrinology opinion - Bony denies family history of thyroid nodules or cancer. - Bony's mother has rheumatoid arthritis; Bony's sister had reactive arthritis. - Bony denies history of smoking. 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 - Bony denies other exposure to radioactive material. She is here for my opinion on biopsy of the nodule PAST MEDICAL HISTORY Diagnosis Date NONE PAST SURGICAL HISTORY Procedure Laterality Date PAST SURGICAL HISTORY OF widom teeth extracted ALLERGIES Allergen Reactions Environmental [Othe* stated that she has nasal issues with this, eg: sneezing, runny nose. SOCIAL HISTORY[1] FAMILY HISTORY Problem Relation Age of Onset Cancer Paternal Grandmother MEDICATIONS: Current Outpatient Medications on File Prior to Visit Medication Sig mometasone furoate(NASONEX 50 MCG/ACTUATION SPRAY) as needed ZYRTEC-D 5 MG-120 MG 12 HR TAB Take one(1) tablet daily as needed. No current facility-administered medications on file prior to visit. REVIEW OF SYSTEMS: 10 point ROS was reviewed and negative unless indicated in the HPI PHYSICAL EXAMINATION: BP: 104/76 Pulse: 80 Resp: 17 SpO2: 99 % General: no acute distress, alert and orientated X 3 Eyes:EOMI, anicteric sclera Neck - supple, no significant adenopathy, Thyroid: normal in size, no asymmetry, no palpable nodules Neuro: alert, oriented, normal speech, no focal findings noted CV: normal rate and regular rhythm, S1 and S2 normal. Chest: Lungs clear to auscultation. No wheezing, rhonchi, rales Abdominal: soft, non-tender. Bowel sounds normal. Musculoskeletal: no joint tenderness, deformity or swelling Extremities: no edema, no discoloration Skin: no rash or erythema LABS AND IMAGING No labs available to us, but patient reports normal thyroid labs recently done at PCP office Thyroid ultrasound (10/14/24): ASSESSMENT AND PLAN: Bony Quiroz is a 39 year old female presenting to endocrinology for evaluation of thyroid nodules. 1. Multiple Thyroid cysts/nodules: - TSH normal as verbally reported, along with free T4, and Free T3 - I reviewed the findings with the patient, explained these are considered thyroid cysts, which are essentially benign, and given the size do not need any follow up - she can have thyroid tests done annually or when symptoms occur as part of physical exam, due to family hx of autoimmune disorders, and if any abnormality, can be reviewed Symptoms of hypo and hyperthyroidism reviewed with her No follow up indicated Loki Renae MD [facility] Endocrinology and Metabolism [place] [facility] I spent a total of 30 minutes on the date of the service which included preparing to see the patient, [id number] patient care, completing clinical documentation, obtaining and/or reviewing separately obtained history, performing a medically appropriate examination, counseling and educating the patient/family/caregiver, ordering medications, tests, or procedures, independently interpreting results (not separately reported), and communicating results to the patient/family/caregiver. Medical Decision Making: Medical Decision Making Level: 1 - N/A [1] Social History Tobacco Use Smoking status: Never Smokeless tobacco: Never Vaping Use Vaping status: Never Used Substance Use Topics Alcohol use: Yes Comment: occasional Drug use: No [facility] History of Present illness Narrative 02-03-2025 Loki Renae MD - 02/03/2025 8:26 AM EDT Note Date & Type Note Facility 02-03-2025 History of Presen t illness Narrative Images from the original note were not included. [facility] Initial Clinic Visit Note NAME: Bony Quiroz PCP: No primary care provider on file. Chief Complaint: Thyroid cysts HPI: Bony Quiroz is a 39 year old female was referred for evaluation of thyroid nodules/cysts. She works at a [employer] clinic History in brief, - Initial thyroid ultrasound performed in [place] several years ago. - Moved to [place] and established care with a new PCP, who ordered a repeat ultrasound. - Bony missed a follow-up appointment, resulting in a 2-year gap before the next ultrasound. - Recent ultrasound showed small nodules and an enlarged lymph node. - Consulted with Dr. Agustin, a general surgeon, who reviewed the images and noted the nodules were small and the lymph node appeared healthy. But was advised to seek Endocrinology opinion - Bony denies family history of thyroid nodules or cancer. - Bony's mother has rheumatoid arthritis; Bony's sister had reactive arthritis. - Bony denies history of smoking. 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 - Bony denies other exposure to radioactive material. She is here for my opinion on biopsy of the nodule PAST MEDICAL HISTORY Diagnosis Date NONE PAST SURGICAL HISTORY Procedure Laterality Date PAST SURGICAL HISTORY OF widom teeth extracted ALLERGIES Allergen Reactions Environmental [Othe* stated that she has nasal issues with this, eg: sneezing, runny nose. SOCIAL HISTORY[1] FAMILY HISTORY Problem Relation Age of Onset Cancer Paternal Grandmother MEDICATIONS: Current Outpatient Medications on File Prior to Visit Medication Sig mometasone furoate(NASONEX 50 MCG/ACTUATION SPRAY) as needed ZYRTEC-D 5 MG-120 MG 12 HR TAB Take one(1) tablet daily as needed. No current facility-administered medications on file prior to visit. REVIEW OF SYSTEMS: 10 point ROS was reviewed and negative unless indicated in the HPI PHYSICAL EXAMINATION: BP: 104/76 Pulse: 80 Resp: 17 SpO2: 99 % General: no acute distress, alert and orientated X 3 Eyes:EOMI, anicteric sclera Neck - supple, no significant adenopathy, Thyroid: normal in size, no asymmetry, no palpable nodules Neuro: alert, oriented, normal speech, no focal findings noted CV: normal rate and regular rhythm, S1 and S2 normal. Chest: Lungs clear to auscultation. No wheezing, rhonchi, rales Abdominal: soft, non-tender. Bowel sounds normal. Musculoskeletal: no joint tenderness, deformity or swelling Extremities: no edema, no discoloration Skin: no rash or erythema LABS AND IMAGING No labs available to us, but patient reports normal thyroid labs recently done at PCP office Thyroid ultrasound (10/14/24): ASSESSMENT AND PLAN: Bony Quiroz is a 39 year old female presenting to endocrinology for evaluation of thyroid nodules. 1. Multiple Thyroid cysts/nodules: - TSH normal as verbally reported, along with free T4, and Free T3 - I reviewed the findings with the patient, explained these are considered thyroid cysts, which are essentially benign, and given the size do not need any follow up - she can have thyroid tests done annually or when symptoms occur as part of physical exam, due to family hx of autoimmune disorders, and if any abnormality, can be reviewed Symptoms of hypo and hyperthyroidism reviewed with her No follow up indicated Loki Renae MD [facility] Endocrinology and Metabolism [place] [facility] I spent a total of 30 minutes on the date of the service which included preparing to see the patient, [id number] patient care, completing clinical documentation, obtaining and/or reviewing separately obtained history, performing a medically appropriate examination, counseling and educating the patient/family/caregiver, ordering medications, tests, or procedures, independently interpreting results (not separately reported), and communicating results to the patient/family/caregiver. Medical Decision Making: Medical Decision Making Level: 1 - N/A [1] Social History Tobacco Use Smoking status: Never Smokeless tobacco: Never Vaping Use Vaping status: Never Used Substance Use Topics Alcohol use: Yes Comment: occasional Drug use: No documented in this encounter [facility] Progress note 01-03-2025 Note Date & Type Note Facility 01-03-2025 Note HNO ID: [id number] Author: ARPIT AGUSTIN MD Service: ? Author Type: Physician Type: Progress Notes Filed: 01/03/2025 15:39 Note Text: HISTORY AND PHYSICAL Bony Quiroz 1985 REFERRING PHYSICIAN: Ben Simmons AP* CHIEF COMPLAINT: Consult (Thyroid nodule) HPI: Bony Quiroz is a 39-year-old female presenting for evaluation of thyroid nodules and lymphadenopathy. Bony reports a history of thyroid nodules first identified several years ago during an ultrasound in [place], prompted by her sister, a nurse, who noticed her thyroid appeared enlarged. Her primary care provider at the time noted the thyroid was pretty okay on palpation but ordered an ultrasound to confirm. The ultrasound revealed some findings, but nothing concerning, and she was advised to inform her primary care provider and get routine blood work. After moving to [place], Bony had blood work and a repeat thyroid ultrasound performed 2-3 years ago by a primary care provider at [facility]. The ultrasound again revealed some findings, and she was advised to recheck it in 6 months to a year. However, she missed her physical the following year and did not have another ultrasound until this year. During her physical, she informed the nurse practitioner about her history, and the nurse practitioner noted in the chart that a repeat ultrasound was recommended. Bony had blood work and a repeat ultrasound performed. Bony did not receive the results of the ultrasound and received a bill from the radiologist. She contacted [facility] and was informed via voicemail that four nodules were found on her thyroid, but her blood work was normal, and she was advised to continue monitoring. She then received a call from [facility] informing her of a referral, which she initially thought was to endocrinology but was actually to general surgery. Bony denies feeling any nodules in her neck but notes that her neck appears larger, which she attributes to weight gain after having three children. She denies feeling lethargic or sick and has not experienced night sweats. She is unaware of any family history of lymphoma. The patient is being seen by me today at the request of Dr. Simmons for my opinion and advice regarding Multinodular goiter (primary encounter diagnosis). PAST MEDICAL HISTORY Diagnosis Date NONE PAST SURGICAL HISTORY Procedure Laterality Date PAST SURGICAL HISTORY OF widom teeth extracted Current Outpatient Medications Medication Sig mometasone furoate(NASONEX 50 MCG/ACTUATION SPRAY) as needed ethinyl estradiol/drospirenone(ANDERSON 28 3 MG-0.03 MG TAB) Take one(1) tablet daily. SINGULAIR 10 MG TAB Take one(1) tablet daily at bedtime. DUAC 1 %-5 % TOPICAL GEL APPLY TO AFFECTED AREA IN THE MORNING RETIN-A MICRO 0.1 % TOPICAL GEL AT NIGHT FOR ACNE ZYRTEC-D 5 MG-120 MG 12 HR TAB Take one(1) tablet daily as needed. No current facility-administered medications for this visit. ALLERGIES: Environmental [Other] PERSONAL HISTORY: Social History Tobacco Use Smoking status: Never Substance Use Topics Alcohol use: Yes Comment: occasional Drug use: No FAMILY HISTORY: FAMILY HISTORY Problem Relation Age of Onset Cancer Paternal Grandmother REVIEW OF SYMPTOMS: The review of systems data was entered by the nurse and reviewed by me There are no exam notes on file for this visit. PHYSICAL EXAMINATION: General: The patient is 39 year old female, well nourished, well hydrated in no acute distress. The patient is oriented to time, place, and person. VITALS: Blood pressure 130/82, pulse 91, temperature 36.8 ?C (98.2 ?F), weight 78 kg (172 lb), last menstrual period 08/05/2006, SpO2 99%. HEENT: Normal cephalic, ataumatic, pupils are equally round, sclera are anicteric, mucous membranes are moist, oropharynx is clear. Neck has no masses, asymmetry or lymphadenopathy. Thyroid is unremarkable. Respiratory: Clear to auscultation and percussion. Normal respiratory excursion and pattern. Cardiac: Examination is regular rate and rhythm. Abdominal exam: Soft, nontender, with no palpable masses. No hepatosplenomegaly. No palpable hernias. Rectal exam: exam deferred Extremities: no clubbing, cyanosis or edema. No adenopathy. Other: LABORATORY VALUES: Labs Tests Imaging - Thyroid Ultrasound (most recent noted, no date specified): - Four nodules measuring up to 3 mm. - Lateral cervical lymph node measuring 2.2 ? 1 ? 0.4 cm with elongated shape, consistent with normal architecture (TR1). - Thyroid Ultrasound (earlier, no date specified): - Multiple nodules identified; recommended follow-up in 6-12 months. - Thyroid Ultrasound (earliest noted, no date specified): - Incidental thyroid nodules without concerning features. RADIOLOGIC STUDIES: As Noted Assessment IMPRESSION: Multinodular goiter (primary encounter diagnosis) PLAN: 1. Multinodular goiter (E04. (more content not included)... [facility] History of Present illness Narrative 01-03-2025 Arpit Agustin MD - 01/03/2025 3:35 PM EDT Note Date & Type Note Facility 01-03-2025 History of Presen t illness Narrative HISTORY AND PHYSICAL Bony Quiroz 1985 REFERRING PHYSICIAN: Ben Simmons AP* CHIEF COMPLAINT: Consult (Thyroid nodule) HPI: Bony Quiroz is a 39-year-old female presenting for evaluation of thyroid nodules and lymphadenopathy. Bony reports a history of thyroid nodules first identified several years ago during an ultrasound in [place], prompted by her sister, a nurse, who noticed her thyroid appeared enlarged. Her primary care provider at the time noted the thyroid was pretty okay on palpation but ordered an ultrasound to confirm. The ultrasound revealed some findings, but nothing concerning, and she was advised to inform her primary care provider and get routine blood work. After moving to [place], Bony had blood work and a repeat thyroid ultrasound performed 2-3 years ago by a primary care provider at [facility]. The ultrasound again revealed some findings, and she was advised to recheck it in 6 months to a year. However, she missed her physical the following year and did not have another ultrasound until this year. During her physical, she informed the nurse practitioner about her history, and the nurse practitioner noted in the chart that a repeat ultrasound was recommended. Bony had blood work and a repeat ultrasound performed. Bony did not receive the results of the ultrasound and received a bill from the radiologist. She contacted [facility] and was informed via voicemail that four nodules were found on her thyroid, but her blood work was normal, and she was advised to continue monitoring. She then received a call from [facility] informing her of a referral, which she initially thought was to endocrinology but was actually to general surgery. Bony denies feeling any nodules in her neck but notes that her neck appears larger, which she attributes to weight gain after having three children. She denies feeling lethargic or sick and has not experienced night sweats. She is unaware of any family history of lymphoma. The patient is being seen by me today at the request of Dr. Simmons for my opinion and advice regarding Multinodular goiter (primary encounter diagnosis). PAST MEDICAL HISTORY Diagnosis Date NONE PAST SURGICAL HISTORY Procedure Laterality Date PAST SURGICAL HISTORY OF widom teeth extracted Current Outpatient Medications Medication Sig mometasone furoate(NASONEX 50 MCG/ACTUATION SPRAY) as needed ethinyl estradiol/drospirenone(ANDERSON 28 3 MG-0.03 MG TAB) Take one(1) tablet daily. SINGULAIR 10 MG TAB Take one(1) tablet daily at bedtime. DUAC 1 %-5 % TOPICAL GEL APPLY TO AFFECTED AREA IN THE MORNING RETIN-A MICRO 0.1 % TOPICAL GEL AT NIGHT FOR ACNE ZYRTEC-D 5 MG-120 MG 12 HR TAB Take one(1) tablet daily as needed. No current facility-administered medications for this visit. ALLERGIES: Environmental [Other] PERSONAL HISTORY: Social History Tobacco Use Smoking status: Never Substance Use Topics Alcohol use: Yes Comment: occasional Drug use: No FAMILY HISTORY: FAMILY HISTORY Problem Relation Age of Onset Cancer Paternal Grandmother REVIEW OF SYMPTOMS: The review of systems data was entered by the nurse and reviewed by me There are no exam notes on file for this visit. PHYSICAL EXAMINATION: General: The patient is 39 year old female, well nourished, well hydrated in no acute distress. The patient is oriented to time, place, and person. VITALS: Blood pressure 130/82, pulse 91, temperature 36.8 C (98.2 F), weight 78 kg (172 lb), last menstrual period 08/05/2006, SpO2 99%. HEENT: Normal cephalic, ataumatic, pupils are equally round, sclera are anicteric, mucous membranes are moist, oropharynx is clear. Neck has no masses, asymmetry or lymphadenopathy. Thyroid is unremarkable. Respiratory: Clear to auscultation and percussion. Normal respiratory excursion and pattern. Cardiac: Examination is regular rate and rhythm. Abdominal exam: Soft, nontender, with no palpable masses. No hepatosplenomegaly. No palpable hernias. Rectal exam: exam deferred Extremities: no clubbing, cyanosis or edema. No adenopathy. Other: LABORATORY VALUES: Labs Tests Imaging - Thyroid Ultrasound (most recent noted, no date specified): - Four nodules measuring up to 3 mm. - Lateral cervical lymph node measuring 2.2 1 0.4 cm with elongated shape, consistent with normal architecture (TR1). - Thyroid Ultrasound (earlier, no date specified): - Multiple nodules identified; recommended follow-up in 6-12 months. - Thyroid Ultrasound (earliest noted, no date specified): - Incidental thyroid nodules without concerning features. RADIOLOGIC STUDIES: As Noted Assessment IMPRESSION: Multinodular goiter (primary encounter diagnosis) PLAN: 1. Multinodular goiter (E04.2) Thyroid ultrasound revealed multiple nodules, the largest being 3 mm, classified as TR1. Additionally, an incidental lymph node measuring 2.2 x 1 x 0.4 cm was noted, appearing normal and elongated. No palpable masses or abnormalities detected on physical examination. No family history of lymphoma. Patient is asymptomatic, with no reports of night sweats or lethargy. - Recommended follow-up ultrasound in 6 months to monitor the lymph node for stability. - Advised annual ultrasound for thyroid nodules; if no growth is observed, further ultrasounds may not be necessary. - Discussed potential need for fine needle aspiration biopsy if any hard nodules or changes are detected in the left side of the neck. - Advised obtaining TSH, Free T4, T3, and thyroid peroxidase antibodies to assess for lymphocytic thyroiditis or chronic inflammation. - If chronic inflammation is confirmed, consider initiating Levoxyl 50 mcg daily. - Referral to endocrinology for further evaluation and management. Diagnoses: (E04.2) Multinodular goiter (primary encounter diagnosis) My findings have been communicated to Dr. Simmons via shared medical record. This note will be forwarded to Dr. León primary care provider on file.. Return to Clinic: The patient is instructed to follow-up with me after the testing has been completed. Arpit Agustin III, MD documented in this encounter [facility] Evaluation note Note Date & Type Note Facility Evaluation note Diagnosis Onset Date Encounter for routine gyneco logical examination noneactive [facility] Work Phone: Evaluation note Note Date & Type Note Facility Evaluation note Diagnosis Multinodular goiter- Primary Nontoxic multinodular goiter documented in this encounter [facility] Evaluation note Note Date & Type Note Facility Evaluation note Diagnosis Multiple thyroid nodules [E04.2]- Primary Nontoxic multinodular goiter documented in this encounter [facility] Summary Purpose Family History No Family History Records Found Relationship Condition Age at Onset Recorded Date/T karli Not Specified Cardiac disease Unknown father Dementia Unknown Malignant neoplasm of prostate Unknown mother Rheumatoid arthritis Unknown Advance Directives No Advanced Directives Records FoundNo Advanced Directives Records FoundNo Advanced Directives Records Found Chief Complaint and Reason for Visit Chief Complaint Annual (PUBLIC HEALTH) THYROMEGALY Reason for Visit Encounter for routin e gynecological examination Additional Source Comments INFORMATION SOURCE (unrecogn ized section and content) DATE CREATED AUTHOR 10/08/2020 [facility] DATE CREATED AUTHOR AUTHOR'S ORGANIZ ATION 10/27/2024 [facility] DATE CREATED AUTHOR AUTHOR'S ORGANIZ ATION 02/05/2025 [facility] Care Teams (unrecognized sec tion and content) Team Status: Active Member Role Status Dates Dr. Eran Patel MD Family Provider Active Dr. Jules Espinoza MD Primary Care Provider Active Team Status: Inactive Member Role Status Dates No Primary Care Physician Referring Provider Active Dr. Shanique Torrez DO Attending Provider Activ e Dr. Jules Espinoza MD Primary Care Provider Active Team Status: Inactive Member Role Status Dates Dr. Jules Espinoza MD Primary Care Pr ovider, Attending Provider, Referring Provider Active Team Status: Active Member Role Status Dates Dr. Jules Espinoza MD Primary Care Pr ovider, Attending Provider, Referring Provider Active Goals (unrecognized section and content) Goals may be documented in a n alternate sectionGoals may be documented in an alternate section Source Comments (unrecognize d section and content) In the event this informatio n is protected by the Federal Confidentiality of Alcohol and Drug Abuse Patient Records regulations: The Federal rules restrict any use of the information to criminally investigate or prosecute any alcohol or drug abuse patient.[facility] Health[facility] the event this information is protected by the Federal Confidentiality of Alcohol and Drug Abuse Patient Records regulations: The Federal rules restrict any use of the information to criminally investigate or prosecute any alcohol or drug abuse patient.[facility] Reason for Visit (unrecogniz ed section and content) Reason Comments Consult Thyroid nodule Reason Comments Consult FOR RECORDS PERTAINING TO PATIENTS WHO ARE OR HAVE BEEN ENROLLED IN A CHEMICAL DEPENDENCY/SUBSTANCEABUSE PROGRAM, SOME INFORMATION MAY BE OMITTED. This clinical summary was aggregated from multiple sources. Caution should be exercised in using it in the provision of clinical care. This summary normalizes information from multiple sources, and as a consequence, information in this document may materially change the coding, format and clinical context of patient data. In addition, data may be omitted in some cases. CLINICAL DECISIONS SHOULD BE BASED ON THE PRIMARY CLINICAL RECORDS. [facility] [employer] [facility]. provides no warranty or guarantee of the accuracy or completeness of information in this document.
[2025-04-13 10:19] LABS: Hematocrit 39.9 % (37-47); Hemoglobin 13.1 g/dL (12.0-15.0); Immature Granulocytes Count 0.030 X10^3/uL (0.0-0.0); Mean Corp Hgb Conc 32.8 g/dL (32-36); Mean Corpuscular Volume 90.5 fL (81-99); Mean Platelet Vol. 9.6 fl (6.2-12.0); NRBC Flagged by Analyzer 0 % (0-5); Platelet Count 210 K/mm3 (150-450); RBC Distribution Width CV 12.4 % (11.6-14.6); RBC Distribution Width SD 41.1 fl (35.1-43.9); Red Blood Count 4.41 M/mm3 (4.2-5.4); White Blood Count 5.3 K/mm3 (4.4-11.0)
[2025-04-13 10:53] LABS: AST(SGOT) 14 U/L (<=31); Alanine Aminotransfer ALT/SGPT 12 U/L (<=34); Albumin, Serum 4.5 g/dL (3.5-5.0); Alkaline Phosphatase 50 U/L (35-104); Anion Gap 10 (5-15); BUN 11 mg/dL (4-19); BUN/Creat Ratio 14.9 RATIO (10-20); Calcium,Total 9.0 mg/dL (7.6-11.0); Carbon Dioxide 22.7 mmol/L (21.0-32.0); Chloride 106 mmol/L (98-108); Globulin 2.4 g/dL (2.2-4.2); Glucose 89 mg/dL (70-99); Potassium 4.3 mmol/L (3.3-5.1)
== END | disposition home or self-care (01) ==
LOC: MFPLAB 08:34
PROVIDERS: PCP Family Medicine; Visit Provider Family Medicine
DX: E04.2 Nontoxic multinodular goiter (principal); R63.5 Abnormal weight gain
CPT/HCPCS: 36415; 80053; 84439; 84443; 85025

== ENCOUNTER → 2025-05-03 | Outpatient (CLI) | payer OTHER, SELFPAY ==
--- NOTE | 2025-05-03 12:42 | US_ITS ---
PROCEDURE: HEAD/NECK SOFT TISSUE 05/03/2025 REASON FOR EXAM: LYMPHADENOPATHY, COMPARE TO ULTRASOUND 09/2024 TECHNIQUE: Procedure Code: USH/N SOFT Modality: US Procedure: HEAD/NECK SOFT TISSUE COMPARISON: Thyroid ultrasound from 14 Oct 2024. FINDINGS: Targeted sonographic evaluation of the soft tissue neck demonstrates multiple prominent but not pathologic lymph nodes (based on short axis criteria). Right: 0.7 x 0.6 x 0.2 cm. 1.3 x 0.7 x 0.2 cm. Left: 1.8 x 1.2 x 0.3 cm. 1.3 x 1 x 0.3 cm. 1.4 x 0.6 x 0.3 cm. US/Head/Neck Soft Tissue IMPRESSION: Multiple, prominent but not pathologic (based on short axis criteria) bilateral soft tissue neck lymph nodes. Reading Location: [id number]
== END | disposition home or self-care (01) ==
LOC: US 12:37
PROVIDERS: PCP Family Medicine; Referring Provider Family Medicine; Visit Provider Family Medicine
DX: R59.0 Localized enlarged lymph nodes (principal)
CPT/HCPCS: 76536